=== PATIENT | female | born 1945 | race Caucasian/White ===

== ENCOUNTER 2019-01-17 10:10 | Inpatient (IN) | payer BC ==
--- NOTE | 2019-01-17 10:52 | PDOC ---
History of Present Illness - General Chief Complaint: Wound Stated Complaint: R/ LEG PROBLEM Time Seen by Provider: 01/17/19 10:36 History Source: Patient Exam Limitations: No Limitations - History of Present Illness Initial Comments: 01/17/19 11:27 73 yo F with a hx of HTN, DM (recent A1C 6.7%), HLD, and glaucoma presents to the emergency department with worsening right leg erythema. Per the patient, she was given amlodipine by her PMD 1 month ago and subsequently developed bilateral LE edema. The left leg resolved, but the RLE persisted. 3 weeks ago, she developed redness on her right lower leg at the ankle medial side. She was placed on clindamycin then and completed the course. The rash progressively ascended to her knee and was placed on keflex on 01/10/2019 (still taking it). She states her rash is worsening, spreading to her inner thigh, and a new rash Past History - Past Medical History Allergies/Adverse Reactions: Allergies Allergy/AdvReac Type Severity Reaction Status Date / Time No Known Allergies Allergy Verified 01/17/19 11:26 Home Medications: Ambulatory Orders Albuterol Sulfate [Proair Hfa -] 1 - 2 inh PO TID PRN 12/23/14 Atorvastatin Ca [Lipitor] 20 mg PO DAILY 12/23/14 Cetirizine HCl [Zyrtec -] 10 mg PO DAILY 12/23/14 Cholecalciferol (Vitamin D3) [Vitamin D] 2,000 unit PO DAILY 12/23/14 Cholecalciferol (Vitamin D3) [Vitamin D] 400 unit PO ASDIR 12/23/14 Cyanocobalamin Vit B-12 Inj. [Vitamin B12 Injection -] 1,000 mcg IM MONTHLY 09/01 Diltiazem Cd [Cardizem Cd -] 300 mg PO DAILY 12/23/14 Lisinopril [Prinivil -] 40 mg PO DAILY 12/23/14 Oxybutynin Chloride [Oxybutynin Chloride ER] 5 mg PO DAILY 12/23/14 Ranitidine HCl [Zantac] 150 mg PO HS 12/23/14 Travoprost (Benzalkonium) [Travatan 0.004% Eye Drop] 2.5 ml OP HS 12/23/14 Brinzolamide [Azopt] 1 g OP TID 01/12/15 Glipizide/Metformin HCl [Glipizide-Metformin 5-500 mg] 2 each PO BIDAC 01/12/15 Ciprofloxacin [Cipro -] 500 mg PO Q12H #6 tablet 01/13/15 Oxycodone HCl/Acetaminophen [Percocet 7.5-500 mg Tablet] 1 - 2 tab PO Q6H #20 tablet 01/13/15 Asthma: Yes COPD: Yes (bronchitis) Diabetes: Yes (NIDDM) Disorders: Yes (overactive bladder) HTN: Yes Hypercholesterolemia: Yes - Immunization History Immunization Up to Date: No - Psycho Social/Smoking Cessation Hx Smoking History: Never smoked Have you smoked in the past 12 months: No Information on smoking cessation initiated: No Hx Alcohol Use: No Drug/Substance Use Hx: No Substance Use Type: None Hx Substance Use Treatment: No *Physical Exam - Vital Signs Last Vital Signs Temp Pulse Resp BP Pulse Ox 98.2 F 76 16 159/63 96 01/17/19 10:15 01/17/19 10:15 01/17/19 10:15 01/17/19 10:15 01/17/19 10:15 Discharge - Discharge Information Condition: Stable - Follow up/Referral Referrals: Maura Harrison MD [Primary Care Provider] - - Patient Discharge Instructions - Post Discharge Activity
[2019-01-17] MEDS ORDERED: SODIUM CHLORIDE 500 ML IV STA (11:19)
[2019-01-17] MEDS ORDERED: ACETAMINOPHEN 1000 MG/100 ML VIAL (NON FORMULARY) IVPB ONE (11:19)
[2019-01-17] MEDS ORDERED: PIPERACILLIN/TAZOB 3.375 GM 3.375 GM in DEXTROSE 5%-WATER - 50 ML IVPB ONE (11:24)
[2019-01-17] MEDS ORDERED: VANCOMYCIN 1 GM in D5W (PRE-DOCKED) 1,000 MG/250 ML IVPB ONE (11:24)
[2019-01-17] MEDS ORDERED: ACETAMINOPHEN INJECTION 100 ML IVPB ONE (11:34)
[2019-01-17] MEDS ORDERED: PIPERACILLIN/TAZOB 3.375 GM 3.375 GM/50 ML BAG IVPB ONE (11:35)
[2019-01-17] MEDS ORDERED: VANCOMYCIN 1 GRAM (PRE-DOCKED) 1,000 MG/250 ML BAG IVPB ONE (11:35)
--- NOTE | 2019-01-17 11:35 | PDOC ---
Attending Attestation - Resident Resident Name: Francesco Kaplan - ED Attending Attestation I have performed the following: I have examined & evaluated the patient, The case was reviewed & discussed with the resident, I agree w/resident's findings & plan, Exceptions are as noted - HPI HPI: 01/17/19 11:35 73 F with h/o HTN, DM (recent A1C 6.7%), HLD, and glaucoma presenting to ED with RLE redness and swelling. Pt states that she first developed BLE edema a month ago when her BP meds were changed by her PMD. The LLE edema improved, but the RLE edema persisted and pt began to develop redness around the R ankle. Pt was tx'ed for cellulitis with clindamycin, which did not help. The redness worsened and spread to her knee, and pt was started on keflex 1 week ago. Pt notes no improvement on keflex. Denies F/C. Denies any open wounds. Denies any injury. Denies recent travel/immobilization. - Physicial Exam PE: 01/17/19 11:39 "GENERAL: Awake, alert, and fully oriented, in no acute distress. HEAD: No signs of trauma EYES: PERRLA, EOMI, sclera anicteric, conjunctiva clear ENT: Auricles normal inspection, hearing grossly normal, nares patent, oropharynx clear without exudates. Moist mucosa NECK: Nontender, no stepoffs, Normal ROM, supple, no lymphadenopathy, JVD, or masses LUNGS: Breath sounds equal, clear to auscultation bilaterally. No wheezes, and no crackles HEART: Regular rate and rhythm, normal S1 and S2, no murmurs, rubs or gallops ABDOMEN: Soft, nontender, normoactive bowel sounds. No guarding, no rebound. No masses EXTREMITIES: + RLE edema and erythema extending up kaur, diminished DP pulses bilaterally NEUROLOGICAL: Cranial nerves II through XII intact. 5/5 strength and sensation in all extremities, Normal speech, normal gait, normal cerebellar function SKIN: Warm, Dry, normal turgor, no rashes or lesions noted. - Medical Decision Making 01/17/19 11:40 73 F with RLE redness and swelling. - Labs, cultures - Venous and arterial dopplers - XR to r/o osteo - IV abx
[2019-01-17 12:18] LABS: BASO % 1.1 % (0-2.0); EOS % 5.2 % (0-4.5); HEMATOCRIT 33.7 % (32.4-45.2); HEMOGLOBIN 10.9 GM/dL (10.7-15.3); LYMPH % 14.4 % (8-40); MCH 26.6 pg (25.7-33.7); MCHC 32.5 g/dl (32.0-36.0); MEAN CELL VOLUME 82.1 fl (80-96); NEUT % 71.3 % (42.8-82.8); PLATELET COUNT 319 K/MM3 (134-434); RDW 14.6 % (11.6-15.6); WHITE BLOOD COUNT 8.3 K/mm3 (4.0-10.0)
[2019-01-17 12:46] LABS: INR 0.94 (0.83-1.09); PROTHROMBIN TIME (PATIENT) 11.1 SEC (9.7-13.0)
[2019-01-17 13:07] LABS: ALBUMIN 3.3 g/dl (3.4-5.0); BILIRUBIN,TOTAL 0.3 mg/dL (0.2-1); BLOOD UREA NITROGEN 25.8 mg/dL (7-18); CALCIUM 9.4 mg/dL (8.5-10.1); CREATININE 1.3 mg/dL (0.55-1.3); POTASSIUM 5.2 mmol/L (3.5-5.1); TOT PROT 7.4 g/dl (6.4-8.2)
--- NOTE | 2019-01-17 15:23 | HP ---
Admitting History and Physical - Admission History of Present Illness: 73 F with h/o HTN, DM (recent A1C 6.7%), HLD, and glaucoma presenting to ED with RLE redness and swelling. Pt states that she first developed BLE edema a month ago when her BP meds were changed by her PMD. The LLE edema improved, but the RLE edema persisted and pt began to develop redness around the R ankle. Pt was tx'ed for cellulitis with clindamycin, which did not help. The redness worsened and spread to her knee, and pt was started on keflex 1 week ago. Pt notes no improvement on keflex. Denies Fever and chills. Denies any open wounds. Denies any injury. Denies recent travel/immobilization. History Source: Patient - Past Medical History Cardiovascular: Yes: HTN, Hyperlipdemia Gastrointestinal: Yes: Gastritis Endocrine: Yes: Diabetes Mellitus - Smoking History Smoking history: Never smoked Have you smoked in the past 12 months: No - Alcohol/Substance Use Hx Alcohol Use: No Home Medications - Allergies Allergies/Adverse Reactions: Allergies Allergy/AdvReac Type Severity Reaction Status Date / Time No Known Allergies Allergy Verified 01/17/19 11:26 - Home Medications Home Medications: Ambulatory Orders Atorvastatin Ca [Lipitor] 20 mg PO DAILY 12/23/14 Cetirizine HCl [Zyrtec -] 10 mg PO DAILY 12/23/14 Cholecalciferol (Vitamin D3) [Vitamin D] 2,000 unit PO DAILY 12/23/14 Cyanocobalamin Vit B-12 Inj. [Vitamin B12 Injection -] 1,000 mcg IM MONTHLY 09/01 Diltiazem Cd [Cardizem Cd -] 300 mg PO DAILY 12/23/14 Oxybutynin Chloride [Oxybutynin Chloride ER] 5 mg PO DAILY 12/23/14 Travoprost (Benzalkonium) [Travatan 0.004% Eye Drop] 2.5 ml OP HS 12/23/14 Brinzolamide [Azopt] 1 g OP TID 01/12/15 Glipizide/Metformin HCl [Glipizide-Metformin 5-500 mg] 2 each PO BIDAC 01/12/15 Metformin HCl [Glucophage] 500 mg PO DAILY 01/17/19 Review of Systems - Review of Systems Musculoskeletal: reports: Other (leg pain redness) Physical Examination Vital Signs: Vital Signs Temperature 98.5 F 01/17/19 11:15 Pulse Rate 68 01/17/19 11:15 Respiratory Rate 20 01/17/19 11:15 Blood Pressure 165/68 01/17/19 11:15 O2 Sat by Pulse Oximetry (%) 94 L 01/17/19 11:15 Constitutional: Yes: Calm Cardiovascular: Yes: Regular Rate and Rhythm, S1, S2 Respiratory: Yes: CTA Bilaterally Gastrointestinal: Yes: Normal Bowel Sounds, Soft Musculoskeletal: Yes: Other (redness sweling warm to touch) Edema: Yes Labs: CBC, BMP 01/17/19 11:40 01/17/19 11:40 Problem List - Problems (1) Edema leg Assessment/Plan: arterial and venous scan pending elevate the leg iv abx ID eval vascular eval Code(s): R60.0 - LOCALIZED EDEMA (2) Diabetes Assessment/Plan: bgm [id number] sliding sclae hold metformin trend lactic acid Code(s): E11.9 - TYPE 2 DIABETES MELLITUS WITHOUT COMPLICATIONS Qualifiers: Diabetes mellitus type: type 2 (3) Cellulitis Assessment/Plan: iv abx trend lactic acid Code(s): L03.90 - CELLULITIS, UNSPECIFIED
[2019-01-17] MEDS ORDERED: ACETAMINOPHEN 325 MG TABLET (FP) PO PRN (15:26)
--- NOTE | 2019-01-17 15:51 | EKG ---
Test Reason : Blood Pressure : / mmHG Vent. Rate : 060 BPM Atrial Rate : 060 BPM P-R Int : 184 ms QRS Dur : 082 ms QT Int : 402 ms P-R-T Axes : 062 -07 039 degrees QTc Int : 402 ms POOR DATA QUALITY, INTERPRETATION MAY BE ADVERSELY AFFECTED NORMAL SINUS RHYTHM NORMAL ECG WHEN COMPARED WITH ECG OF 23-DEC-2014 09:30, VENT. RATE HAS DECREASED BY 42 BPM Confirmed by DARLIN HICKMAN, LUCIA ([id number]) on 01/17/2019 3:51:05 PM Referred By: Confirmed By:LUCIA SAEED MD
[2019-01-17 16:53] VITALS: BMI 40.9
--- NOTE | 2019-01-17 16:53 | PN ---
Progress Note (short form) - Note Progress Note: ID consult dictated imp/reccd 73 yo female with one month history of leg swelling RLE erythema for the last 2 weeks- clindamycin for one week - no improvement, switched to keflex qid for 10 days - has finished one week with no improvement able to ambulate pain with palpation of the leg duplex negative for dvt arterial dopplers abnormal cellulitis-no open wounds noted received vancomycin and zosyn in ED, will treat with vanco (by level due to elevated creatinine) and ceftriaxone abnl arterial dopplers-vascular surgery consult renal insufficiency DM obesity
[2019-01-17] MEDS ORDERED: CEFTRIAXONE 2 GM-D5W BAG 2 GM/50 ML BAG IVPB SCH (17:00)
[2019-01-17] MEDS ORDERED: PIPERACILLIN/TAZOBACTAM 3.375 GM VIAL IVPB ONE (17:04)
[2019-01-17] MEDS ORDERED: DEXTROSE 5%-WATER - 50 ML IVPB ONE (17:04)
[2019-01-17] MEDS: INSULIN SLIDING SCALE (NOVOLOG) 1 VIAL SQ SCH ×2 (17:17→21:07)
[2019-01-17] MEDS ORDERED: PIPERACILLIN/TAZOB 3.375 GM 3.375 GM in DEXTROSE 5%-WATER - 50 ML IVPB SCH (18:00)
[2019-01-17] MEDS ORDERED: DEXTROSE 5%-WATER 100 ML IVPB ONE (18:00)
[2019-01-17] MEDS: CEFTRIAXONE 2 GM in DEXTROSE 5%-WATER 100 ML IVPB SCH (18:11)
[2019-01-17] MEDS: ATORVASTATIN CA 20 MG TABLET (FP) PO SCH (21:01)
[2019-01-17] MEDS ORDERED: OXYBUTYNIN CHLORIDE 5 MG TABLET PO SCH (22:00)
[2019-01-17] MEDS ORDERED: diphenhydrAMINE HCL 25 MG CAPSULE (FP) PO ONE (22:52)
[2019-01-18] MEDS: INSULIN SLIDING SCALE (NOVOLOG) 1 VIAL SQ SCH ×4 (06:00→21:25)
[2019-01-18] MEDS: glipiZIDE 5 MG TABLET (FP) PO SCH (06:00)
[2019-01-18 07:50] LABS: BLOOD UREA NITROGEN 21.1 mg/dL (7-18); CALCIUM 9.2 mg/dL (8.5-10.1); CREATININE 1.3 mg/dL (0.55-1.3); POTASSIUM 4.4 mmol/L (3.5-5.1)
--- NOTE | 2019-01-18 08:55 | CONSULT ---
- Consultation REQUESTING PROVIDER: CONSULT REQUEST: We have been asked to surgically evaluate this patient for right leg swelling redness. PCP:Maura Harrison HISTORY OF PRESENT ILLNESS: The patient is a 73 yo female who lives independently and cares for herself. Over a month ago the patients hypertensive meds were changed because of an elevation in her potassium. At the same time, she noticed swelling that happened in both lower legs. Her left leg swelling improved but the right persisted and she developed redness. She has tried 2 oral antibiotic courses x 1 week each. When her leg remained red, her physicians wanted to to come to the hospital for IV abx. She hasn't had an fever or chills during the time her legs have been swollen and red. She has pain with palpation of the leg but otherwise no tenderness with ambulating/ sitting. No history of any lower ext ulcers, she does have diabetes, no numbness or tingling to her lower extremities. No claudicaiton symptoms. Years ago she had pain and swelling in her legs b/l and had laser venous therapy over 10 years ago. She denies any chronic swelling since that time until now. PMHx: HTN, DM, Kidney stone PSHx: stent and lithotripsy for Kidney stone , b/l surgery to venous laser therapy Home Medications Medication Instructions Recorded Atorvastatin Ca [Lipitor] 20 mg PO DAILY 12/23/14 Cetirizine HCl [Zyrtec -] 10 mg PO DAILY 12/23/14 Cholecalciferol (Vitamin D3) 2,000 unit PO DAILY 12/23/14 [Vitamin D] Cyanocobalamin Vit B-12 Inj. 1,000 mcg IM MONTHLY 12/23/14 [Vitamin B12 Injection -] Diltiazem Cd [Cardizem Cd -] 300 mg PO DAILY 12/23/14 Oxybutynin Chloride [Oxybutynin 5 mg PO DAILY 12/23/14 Chloride ER] Travoprost (Benzalkonium) 2.5 ml OP HS 12/23/14 [Travatan 0.004% Eye Drop] Brinzolamide [Azopt] 1 g OP TID 01/12/15 Glipizide/Metformin HCl 2 each PO BIDAC 01/12/15 [Glipizide-Metformin 5-500 mg] Metformin HCl [Glucophage] 500 mg PO DAILY 01/17/19 Allergies Allergy/AdvReac Type Severity Reaction Status Date / Time No Known Allergies Allergy Verified 01/17/19 11:26 REVIEW OF SYSTEMS: CONSTITUTIONAL: Absent: fever, chills CARDIOVASCULAR: Absent: chest pain, syncope RESPIRATORY: Absent: cough, shortness of breath GASTROINTESTINAL: Absent: abdominal pain, abdominal distension SKIN: Present: erythema to RLE x 2 to 3 weeks NEUROLOGIC: Absent: paresthesias PHYSICAL EXAM: GENERAL: Awake, alert, and fully oriented, in no acute distress. LUNGS: Clear to auscultation bilat anteriorly. No wheezes, and no crackles. HEART: Regular rate and rhythm. No murmurs ABDOMEN: Soft, nontender, not distended. LOWER EXTREMITIES: LLE 2+ DP-pulse palpable +2 PT with doppler, warm, well- perfused. No calf tenderness. Peripheral edema to left ankle with spider veins. RLE: +2 DP/PT with doppler, erythema to RLE, mostly posterior and medial to above the knee. Skin appears tight and is tender to touch. NO sores to b/l feet/ ankle or lower extremities. Skin intact. NEUROLOGICAL: Normal speech, gait steady. PSYCH: Cooperative. Good eye contact. Appropriate mood and affect. Vital Signs Temperature 97.2 F L 01/18/19 05:39 Pulse Rate 62 01/18/19 05:39 Respiratory Rate 18 01/18/19 05:39 Blood Pressure 139/68 01/18/19 05:39 O2 Sat by Pulse Oximetry (%) 93 L 01/17/19 15:30 Lab Results WBC 8.3 K/mm3 (4.0-10.0) 01/17/19 11:40 RBC 4.10 M/mm3 (3.60-5.2) 01/17/19 11:40 Hgb 10.9 GM/dL (10.7-15.3) 01/17/19 11:40 Hct 33.7 % (32.4-45.2) D 01/17/19 11:40 MCV 82.1 fl (80-96) 01/17/19 11:40 MCHC 32.5 g/dl (32.0-36.0) 01/17/19 11:40 RDW 14.6 % (11.6-15.6) 01/17/19 11:40 Plt Count 319 K/MM3 (134-434) D 01/17/19 11:40 Sodium 138 mmol/L (136-145) 01/18/19 06:40 Potassium 4.4 mmol/L (3.5-5.1) 01/18/19 06:40 Chloride 106 mmol/L (98-107) 01/18/19 06:40 Carbon Dioxide 23 mmol/L (21-32) 01/18/19 06:40 Anion Gap 8 MMOL/L (8-16) 01/18/19 06:40 BUN 21.1 mg/dL (7-18) H 01/18/19 06:40 Creatinine 1.3 mg/dL (0.55-1.3) 01/18/19 06:40 Random Glucose 100 mg/dL (74-106) 01/18/19 06:40 Calcium 9.2 mg/dL (8.5-10.1) 01/18/19 06:40 INR 0.94 (0.83-1.09) 01/17/19 11:40 US-12/28 and 01/17-no evidence of DVT Duplex arterial-monophasic flow throughout the leg with no hemodynamically significant stenosis Foot/LE xray: soft tissue swelling Problem List - Problems (1) Cellulitis Assessment/Plan: Pt with RLE cellulitis/swelling for several weeks with no improvement after oral antibtiocs. Now admitted to the hospital for IV abx and will also need strict leg elevation. Her arterial duplex does reveal some monophasic flow thought the right leg, clinically her feet are warm and with doppler DP pulse to the right/palpable on the left. She denies any history of claudication symptoms and or non healing ulcers. Code(s): L03.90 - CELLULITIS, UNSPECIFIED Qualifiers: Laterality: right (2) Edema leg Assessment/Plan: History of laser venous therpay >10 years ago and denies any current chronic swelling symptoms. Now with swelling cellulitis to RLE. Srict leg elevation at all times when in bed and oob to chair. The patient will need to follow up with Dr. Alonzo as an outpt in the clinic after swelling/cellulits improves. He will see her to determine any further vascular studies. D/w Dr. Alonzo Code(s): R60.0 - LOCALIZED EDEMA
[2019-01-18] MEDS ORDERED: DEXTROSE 5%-WATER 100 ML IVPB ONE (09:23)
[2019-01-18] MEDS ORDERED: PT OWN MED DRAWER 7, Y5N ONE ×3 (09:23→23:31)
[2019-01-18] MEDS: CEFTRIAXONE 2 GM in DEXTROSE 5%-WATER 100 ML IVPB SCH (09:25)
[2019-01-18] MEDS: OXYBUTYNIN CHLORIDE 5 MG TABLET PO SCH (09:26)
--- NOTE | 2019-01-18 11:27 | PN ---
Progress Note, Physician Chief Complaint: RLE Cellulitis History of Present Illness: Previous notes and events reviewed awake and alert NAD RLE warm to touch and tender to palpation afebrile no leukocytosis BC pending - Current Medication List Current Medications: Active Medications Acetaminophen (Tylenol -) 650 mg PO Q4H PRN PRN Reason: PAIN Atorvastatin Calcium (Lipitor -) 20 mg PO HS [facility] Last Admin: 01/17/19 21:01 Dose: 20 mg Diltiazem HCl (Cardizem Cd -) 300 mg PO DAILY [facility] Glipizide (Glucotrol -) 5 mg PO DAILY@0700 [facility] Last Admin: 01/18/19 06:00 Dose: 5 mg Ceftriaxone Sodium 2 gm/ (Dextrose) 100 mls @ 200 mls/hr IVPB DAILY [facility]; Protocol Last Admin: 01/18/19 09:25 Dose: 200 mls/hr Insulin Aspart (Novolog Vial Sliding Scale -) 1 vial SQ ACHS [facility]; Protocol Last Admin: 01/18/19 06:00 Dose: Not Given Oxybutynin Chloride (Ditropan -) 5 mg PO DAILY [facility] Last Admin: 01/18/19 09:26 Dose: 5 mg - Objective Vital Signs: Vital Signs Temperature 97.2 F L 01/18/19 05:39 Pulse Rate 62 01/18/19 05:39 Respiratory Rate 18 01/18/19 05:39 Blood Pressure 139/68 01/18/19 05:39 O2 Sat by Pulse Oximetry (%) 93 L 01/17/19 15:30 Constitutional: Yes: No Distress, Calm Eyes: Yes: Conjunctiva Clear HENT: Yes: Atraumatic Cardiovascular: Yes: Regular Rate and Rhythm Respiratory: Yes: Regular, CTA Bilaterally Gastrointestinal: Yes: Normal Bowel Sounds, Soft, Abdomen, Obese Musculoskeletal: Yes: WNL Extremities: Yes: Erythema (RLE) Edema: Yes (RLE) Integumentary: Yes: Erythema (RLE from ankle to below knee), Other (RLE~edema, tender on palpation, warm to touch) Neurological: Yes: Alert, Oriented Psychiatric: Yes: Alert, Oriented Labs: CBC, BMP 01/17/19 11:40 01/18/19 06:40 INR, PTT INR 0.94 (0.83-1.09) 01/17/19 11:40 Problem List - Problems (1) Cellulitis Assessment/Plan: -ID on board -Ceftriaxone -no leukocytosis -afebrile -BC pending -LA 2.7 Code(s): L03.90 - CELLULITIS, UNSPECIFIED Qualifiers: Laterality: right (2) CKD (chronic kidney disease) Assessment/Plan: -BUN/Cr 21.1/1.3 -monitor renal function daily -Renal US shows normal kidneys and bladder with no evidence of hydronephrosis or acute pathology Code(s): N18.9 - CHRONIC KIDNEY DISEASE, UNSPECIFIED (3) Diabetes Assessment/Plan: -BGM ACHS -ISS -HgA1c 6.6% -diabetic diet -Glipizide Code(s): E11.9 - TYPE 2 DIABETES MELLITUS WITHOUT COMPLICATIONS Qualifiers: Diabetes mellitus type: type 2 (4) HLD (hyperlipidemia) Assessment/Plan: -Atorvastatin Code(s): E78.5 - HYPERLIPIDEMIA, UNSPECIFIED (5) HTN (hypertension) Assessment/Plan: -Diltiazem -low Na/diabetic diet Code(s): I10 - ESSENTIAL (PRIMARY) HYPERTENSION (6) Edema leg Assessment/Plan: -Vascular on board~close follow up as outpatient -Leg Elevation -Arterial Duplex shows abnormal flow right lower extremity suspicious for inflow pathology -R Foot/Ankle Xray shows calcaneal spurring, no acute fracture -R Tib/Fib Xray shows some arthritic changes with no sign of fracture or subluxation of central blastic or lytic findings -Venous duplex neg for DVT Code(s): R60.0 - LOCALIZED EDEMA Assessment/Plan see problem list dvt ppx
--- NOTE | 2019-01-18 15:33 | PN ---
Progress Note (short form) - Note Progress Note: clinically improved Vital Signs Period Temp Pulse Resp BP Sys/Rankin Pulse Ox Last 24 Hr 97.2 F-98.2 F 55-63 18-18 138-163/51-82 cor-rrr llungs clear abd soft,nt ext less erythema RLE CBC, BMP 01/17/19 11:40 01/18/19 06:40 Microbiology 01/17/19 11:40 Blood - Peripheral Venous Blood Culture - Preliminary NO GROWTH OBTAINED AFTER 24 HOURS, INCUBATION TO CONTINUE FOR 4 DAYS. 01/17/19 11:15 Blood - Peripheral Venous Blood Culture - Preliminary NO GROWTH OBTAINED AFTER 24 HOURS, INCUBATION TO CONTINUE FOR 4 DAYS. a/p cellulitis improving on vanco/rocephin- will continue vanco trough noted, vancomycin dose adjusted
[2019-01-18] MEDS ORDERED: INSULIN (NOVOLOG) ASPART 100 UNITS/ML 10ML VIAL ONE (16:44)
[2019-01-18] MEDS: VANCOMYCIN HCL 1,250 MG in DEXTROSE 5%-WATER - 250 ML IVPB SCH (16:50)
[2019-01-18] MEDS ORDERED: BACITRACIN 15 GM TUBE TOPICAL OINTMENT TP SCH (17:48)
--- NOTE | 2019-01-18 17:51 | HOSP ---
Subjective - Review of Symptoms General: Yes: Other Physical Examination Vital Signs: Vital Signs Temperature 98.3 F 01/18/19 16:36 Pulse Rate 64 01/18/19 16:36 Respiratory Rate 20 01/18/19 16:36 Blood Pressure 128/61 01/18/19 16:36 O2 Sat by Pulse Oximetry (%) 93 L 01/17/19 15:30 Constitutional: Yes: Well Nourished, No Distress, Calm Eyes: Yes: WNL HENT: Yes: WNL, Atraumatic Labs: CBC, BMP 01/17/19 11:40 01/18/19 06:40 Hospitalist Encounter Assessment: called by primary rn to see patient's right arm after patient bumped her arm on the bathroom door while attempting to enter the bathroom. Per RN, patient has not fallen. patient sustained a small round skin tear next to right elbow will treat with bacitracin bid patient denies falls, and mentation at baseline normal range of motion of right arm
[2019-01-18] MEDS: BACITRACIN 15 GM TUBE TOPICAL OINTMENT TP SCH ×2 (18:03→21:26)
[2019-01-18] MEDS: ATORVASTATIN CA 20 MG TABLET (FP) PO SCH (21:25)
[2019-01-19] MEDS: glipiZIDE 5 MG TABLET (FP) PO SCH (06:01)
[2019-01-19] MEDS: INSULIN SLIDING SCALE (NOVOLOG) 1 VIAL SQ SCH ×4 (06:01→22:08)
[2019-01-19 07:53] LABS: HEMATOCRIT 33.8 % (32.4-45.2); HEMOGLOBIN 11.7 GM/dL (10.7-15.3); MCH 28.4 pg (25.7-33.7); MCHC 34.8 g/dl (32.0-36.0); MEAN CELL VOLUME 81.8 fl (80-96); MEAN PLT VOLUME 8.8 fl (7.5-11.1); PLATELET COUNT 322 K/MM3 (134-434); RBC 4.13 M/mm3 (3.60-5.2); RDW 14.4 % (11.6-15.6)
[2019-01-19 08:35] LABS: ALBUMIN 3.7 g/dl (3.4-5.0); BILIRUBIN,TOTAL 0.4 mg/dL (0.2-1); BLOOD UREA NITROGEN 19.2 mg/dL (7-18); CALCIUM 10.3 mg/dL (8.5-10.1); CREATININE 1.3 mg/dL (0.55-1.3); POTASSIUM 4.5 mmol/L (3.5-5.1); TOT PROT 7.7 g/dl (6.4-8.2)
[2019-01-19] MEDS ORDERED: DEXTROSE 5%-WATER 100 ML IVPB ONE (09:49)
[2019-01-19] MEDS ORDERED: PT OWN MED DRAWER 7, Y5N ONE ×2 (09:49→15:40)
[2019-01-19] MEDS: CEFTRIAXONE 2 GM in DEXTROSE 5%-WATER 100 ML IVPB SCH (09:53)
[2019-01-19] MEDS: OXYBUTYNIN CHLORIDE 5 MG TABLET PO SCH (09:54)
[2019-01-19] MEDS: BACITRACIN 15 GM TUBE TOPICAL OINTMENT TP SCH ×2 (09:54→22:13)
[2019-01-19] MEDS ORDERED: INSULIN (NOVOLOG) ASPART 100 UNITS/ML 10ML VIAL ONE (11:49)
--- NOTE | 2019-01-19 13:12 | PN ---
Progress Note (short form) - Note Progress Note: no complaints Vital Signs Period Temp Pulse Resp BP Sys/Rankin Pulse Ox Last 24 Hr 97.9 F-98.3 F 60-67 18-20 128-161/61-82 cor-rrr lungs clear leg unchanged, erythema less red CBC, BMP 01/19/19 07:10 01/19/19 07:10 Microbiology 01/17/19 11:40 Blood - Peripheral Venous Blood Culture - Preliminary NO GROWTH OBTAINED AFTER 48 HOURS, INCUBATION TO CONTINUE FOR 3 DAYS. 01/17/19 11:15 Blood - Peripheral Venous Blood Culture - Preliminary NO GROWTH OBTAINED AFTER 48 HOURS, INCUBATION TO CONTINUE FOR 3 DAYS. a/p cellulitis improving on vanco/rocephin- will continue failed outpt management
--- NOTE | 2019-01-19 14:50 | PN ---
Progress Note, Physician Chief Complaint: RLE Cellulitis History of Present Illness: Previous notes and events reviewed awake and alert NAD RLE warm to touch and tender to palpation, less erythema noted afebrile no leukocytosis BC neg - Current Medication List Current Medications: Active Medications Acetaminophen (Tylenol -) 650 mg PO Q4H PRN PRN Reason: PAIN Atorvastatin Calcium (Lipitor -) 20 mg PO HS [facility] Last Admin: 01/18/19 21:25 Dose: 20 mg Bacitracin (Bacitracin -) 1 applic TP BID [facility] Last Admin: 01/19/19 09:54 Dose: 1 applic Diltiazem HCl (Cardizem Cd -) 300 mg PO DAILY [facility] Last Admin: 01/19/19 09:54 Dose: 300 mg Glipizide (Glucotrol -) 5 mg PO DAILY@0700 [facility] Last Admin: 01/19/19 06:01 Dose: 5 mg Ceftriaxone Sodium 2 gm/ (Dextrose) 100 mls @ 200 mls/hr IVPB DAILY [facility]; Protocol Last Admin: 01/19/19 09:53 Dose: 200 mls/hr Vancomycin HCl 1,250 mg/ (Dextrose) 250 mls @ 250 mls/2 hr IVPB Q24H [facility]; Protocol Last Admin: 01/18/19 16:50 Dose: 250 mls/2 hr Insulin Aspart (Novolog Vial Sliding Scale -) 1 vial SQ ACHS [facility]; Protocol Last Admin: 01/19/19 11:52 Dose: 6 units Oxybutynin Chloride (Ditropan -) 5 mg PO DAILY [facility] Last Admin: 01/19/19 09:54 Dose: 5 mg - Objective Vital Signs: Vital Signs Temperature 98.1 F 01/19/19 10:03 Pulse Rate 67 01/19/19 10:03 Respiratory Rate 18 01/19/19 10:03 Blood Pressure 161/70 01/19/19 10:03 O2 Sat by Pulse Oximetry (%) 93 L 01/17/19 15:30 Constitutional: Yes: No Distress, Calm, Obese Eyes: Yes: Conjunctiva Clear HENT: Yes: Atraumatic Cardiovascular: Yes: Regular Rate and Rhythm Respiratory: Yes: Regular, CTA Bilaterally Gastrointestinal: Yes: Normal Bowel Sounds, Soft, Abdomen, Obese Integumentary: Yes: Erythema (RLE), Other (RLE-edema and warm to touch) Wound/Incision: Yes: Dressing Dry and Intact (R elbow) Neurological: Yes: Alert, Oriented Psychiatric: Yes: Alert, Oriented Labs: CBC, BMP 01/19/19 07:10 01/19/19 07:10 INR, PTT INR 0.94 (0.83-1.09) 01/17/19 11:40 Microbiology 01/17/19 11:40 Blood - Peripheral Venous Blood Culture - Preliminary NO GROWTH OBTAINED AFTER 48 HOURS, INCUBATION TO CONTINUE FOR 3 DAYS. 01/17/19 11:15 Blood - Peripheral Venous Blood Culture - Preliminary NO GROWTH OBTAINED AFTER 48 HOURS, INCUBATION TO CONTINUE FOR 3 DAYS. Problem List - Problems (1) Cellulitis Assessment/Plan: -ID on board -Ceftriaxone -no leukocytosis -afebrile -BC neg -LA 2.7 Code(s): L03.90 - CELLULITIS, UNSPECIFIED Qualifiers: Laterality: right (2) CKD (chronic kidney disease) Assessment/Plan: -BUN/Cr 19.2/1.3 -monitor renal function daily -Renal US shows normal kidneys and bladder with no evidence of hydronephrosis or acute pathology Code(s): N18.9 - CHRONIC KIDNEY DISEASE, UNSPECIFIED (3) Diabetes Assessment/Plan: -BGM ACHS -ISS -HgA1c 6.6% -diabetic diet -Glipizide Code(s): E11.9 - TYPE 2 DIABETES MELLITUS WITHOUT COMPLICATIONS Qualifiers: Diabetes mellitus type: type 2 (4) HLD (hyperlipidemia) Assessment/Plan: -Atorvastatin Code(s): E78.5 - HYPERLIPIDEMIA, UNSPECIFIED (5) HTN (hypertension) Assessment/Plan: -Diltiazem -low Na/diabetic diet Code(s): I10 - ESSENTIAL (PRIMARY) HYPERTENSION (6) Edema leg Assessment/Plan: -Vascular on board~close follow up as outpatient -Leg Elevation -Arterial Duplex shows abnormal flow right lower extremity suspicious for inflow pathology -R Foot/Ankle Xray shows calcaneal spurring, no acute fracture -R Tib/Fib Xray shows some arthritic changes with no sign of fracture or subluxation of central blastic or lytic findings -Venous duplex neg for DVT Code(s): R60.0 - LOCALIZED EDEMA Assessment/Plan see problem list dvt ppx
[2019-01-19] MEDS: VANCOMYCIN HCL 1,250 MG in DEXTROSE 5%-WATER - 250 ML IVPB SCH (15:43)
[2019-01-19] MEDS: ATORVASTATIN CA 20 MG TABLET (FP) PO SCH (22:12)
[2019-01-20] MEDS ORDERED: PT OWN MED DRAWER 7, Y5N ONE ×3 (05:23→15:30)
[2019-01-20] MEDS: glipiZIDE 5 MG TABLET (FP) PO SCH (06:13)
[2019-01-20] MEDS: INSULIN SLIDING SCALE (NOVOLOG) 1 VIAL SQ SCH ×4 (06:47→22:13)
[2019-01-20 06:50] LABS: HEMATOCRIT 33.5 % (32.4-45.2); HEMOGLOBIN 11.6 GM/dL (10.7-15.3); MCH 28.6 pg (25.7-33.7); MCHC 34.6 g/dl (32.0-36.0); MEAN CELL VOLUME 82.7 fl (80-96); MEAN PLT VOLUME 8.4 fl (7.5-11.1); PLATELET COUNT 345 K/MM3 (134-434); RBC 4.05 M/mm3 (3.60-5.2); RDW 14.3 % (11.6-15.6); WHITE BLOOD COUNT 8.3 K/mm3 (4.0-10.0)
[2019-01-20 08:23] LABS: ALBUMIN 3.5 g/dl (3.4-5.0); BILIRUBIN,TOTAL 0.5 mg/dL (0.2-1); BLOOD UREA NITROGEN 19.1 mg/dL (7-18); CALCIUM 9.9 mg/dL (8.5-10.1); CREATININE 1.4 mg/dL (0.55-1.3); POTASSIUM 4.5 mmol/L (3.5-5.1); TOT PROT 7.4 g/dl (6.4-8.2)
[2019-01-20] MEDS ORDERED: DEXTROSE 5%-WATER 100 ML IVPB ONE (08:32)
--- NOTE | 2019-01-20 08:43 | PN ---
Progress Note, Physician Chief Complaint: AWAKE ALERT DENIES FEVER OR CHILLS FEELING BETTER - Current Medication List Current Medications: Active Medications Acetaminophen (Tylenol -) 650 mg PO Q4H PRN PRN Reason: PAIN Atorvastatin Calcium (Lipitor -) 20 mg PO HS [facility] Last Admin: 01/19/19 22:12 Dose: 20 mg Bacitracin (Bacitracin -) 1 applic TP BID [facility] Last Admin: 01/19/19 22:13 Dose: 1 applic Diltiazem HCl (Cardizem Cd -) 300 mg PO DAILY [facility] Last Admin: 01/19/19 09:54 Dose: 300 mg Glipizide (Glucotrol -) 5 mg PO DAILY@0700 [facility] Last Admin: 01/20/19 06:13 Dose: 5 mg Ceftriaxone Sodium 2 gm/ (Dextrose) 100 mls @ 200 mls/hr IVPB DAILY [facility]; Protocol Last Admin: 01/19/19 09:53 Dose: 200 mls/hr Vancomycin HCl 1,250 mg/ (Dextrose) 250 mls @ 250 mls/2 hr IVPB Q24H [facility]; Protocol Last Admin: 01/19/19 15:43 Dose: 250 mls/2 hr Insulin Aspart (Novolog Vial Sliding Scale -) 1 vial SQ ACHS [facility]; Protocol Last Admin: 01/20/19 06:47 Dose: Not Given Oxybutynin Chloride (Ditropan -) 5 mg PO DAILY [facility] Last Admin: 01/19/19 09:54 Dose: 5 mg - Objective Vital Signs: Vital Signs Temperature 97.9 F 01/19/19 16:10 Pulse Rate 63 01/19/19 16:10 Respiratory Rate 20 01/19/19 16:10 Blood Pressure 157/70 01/19/19 16:10 O2 Sat by Pulse Oximetry (%) 93 L 01/17/19 15:30 Constitutional: Yes: No Distress Cardiovascular: Yes: Regular Rate and Rhythm Respiratory: Yes: WNL Gastrointestinal: Yes: Soft, Abdomen, Obese Genitourinary: Yes: WNL Musculoskeletal: Yes: Other Extremities: Yes: Erythema Edema: Yes Integumentary: Yes: Erythema Wound/Incision: Yes: Other Neurological: Yes: WNL ...Motor Strength: LLE (ERYTHEMA AND MILD EDEMA) Psychiatric: Yes: WNL Labs: CBC, BMP 01/20/19 06:35 01/20/19 06:35 INR, PTT INR 0.94 (0.83-1.09) 01/17/19 11:40 Problem List - Problems (1) Cellulitis Code(s): L03.90 - CELLULITIS, UNSPECIFIED Qualifiers: Laterality: right (2) Edema leg Code(s): R60.0 - LOCALIZED EDEMA (3) CKD (chronic kidney disease) Code(s): N18.9 - CHRONIC KIDNEY DISEASE, UNSPECIFIED (4) Diabetes Code(s): E11.9 - TYPE 2 DIABETES MELLITUS WITHOUT COMPLICATIONS Qualifiers: Diabetes mellitus type: type 2 (5) HLD (hyperlipidemia) Code(s): E78.5 - HYPERLIPIDEMIA, UNSPECIFIED (6) HTN (hypertension) Code(s): I10 - ESSENTIAL (PRIMARY) HYPERTENSION Assessment/Plan IV ABX CONTINUED PER ID TO CHANGE TO PO ABX TOMORROW F/U OUTPATIENT WITH DR LOPEZ AND WOUND CARE BGM CHECKS DVT PROPHYLAXIS OOB TO CHAIR
[2019-01-20] MEDS: CEFTRIAXONE 2 GM in DEXTROSE 5%-WATER 100 ML IVPB SCH (09:03)
[2019-01-20] MEDS: OXYBUTYNIN CHLORIDE 5 MG TABLET PO SCH (09:03)
[2019-01-20] MEDS: BACITRACIN 15 GM TUBE TOPICAL OINTMENT TP SCH ×2 (09:04→22:16)
[2019-01-20] MEDS: HEPARIN NA (PORCINE) 5,000 UNITS/ML 1ML VIAL SQ SCH ×2 (10:23→22:13)
--- NOTE | 2019-01-20 15:17 | PN ---
Progress Note (short form) - Note Progress Note: no complaints Vital Signs Period Temp Pulse Resp BP Sys/Rankin Pulse Ox Last 24 Hr 98.2 F 81 20 152/91 leg is improving- lesserythema, less warmth CBC, BMP 01/20/19 06:35 01/20/19 06:35 Microbiology 01/17/19 11:40 Blood - Peripheral Venous Blood Culture - Preliminary NO GROWTH OBTAINED AFTER 72 HOURS, INCUBATION TO CONTINUE FOR 2 DAYS. 01/17/19 11:15 Blood - Peripheral Venous Blood Culture - Preliminary NO GROWTH OBTAINED AFTER 72 HOURS, INCUBATION TO CONTINUE FOR 2 DAYS. Current Medications Acetaminophen (Tylenol -) 650 mg PO Q4H PRN PRN Reason: PAIN Atorvastatin Calcium (Lipitor -) 20 mg PO HS [facility] Last Admin: 01/19/19 22:12 Dose: 20 mg Bacitracin (Bacitracin -) 1 applic TP BID [facility] Last Admin: 01/20/19 09:04 Dose: 1 applic Diltiazem HCl (Cardizem Cd -) 300 mg PO DAILY [facility] Last Admin: 01/20/19 09:03 Dose: 300 mg Glipizide (Glucotrol -) 5 mg PO DAILY@0700 [facility] Last Admin: 01/20/19 06:13 Dose: 5 mg Heparin Sodium (Porcine) (Heparin -) 5,000 unit SQ BID [facility] Last Admin: 01/20/19 10:23 Dose: 5,000 unit Ceftriaxone Sodium 2 gm/ (Dextrose) 100 mls @ 200 mls/hr IVPB DAILY [facility]; Protocol Last Admin: 01/20/19 09:03 Dose: 200 mls/hr Vancomycin HCl 1,250 mg/ (Dextrose) 250 mls @ 250 mls/2 hr IVPB Q24H [facility]; Protocol Last Admin: 01/19/19 15:43 Dose: 250 mls/2 hr Insulin Aspart (Novolog Vial Sliding Scale -) 1 vial SQ ACHS [facility]; Protocol Last Admin: 01/20/19 12:13 Dose: 2 units Oxybutynin Chloride (Ditropan -) 5 mg PO DAILY [facility] Last Admin: 01/20/19 09:03 Dose: 5 mg a/p cellulitis improving on vanco/rocephin- day #3, failed clindamycin and keflex, would consider zyvoxx 400 mg po bid for 7 days as outpt if her insurance will cover it, if not doxycycline 100 mg po bid d/w hospitalist
[2019-01-20] MEDS: VANCOMYCIN HCL 1,250 MG in DEXTROSE 5%-WATER - 250 ML IVPB SCH (15:34)
[2019-01-20] MEDS ORDERED: INSULIN (NOVOLOG) ASPART 100 UNITS/ML 10ML VIAL ONE (21:31)
[2019-01-20] MEDS: ATORVASTATIN CA 20 MG TABLET (FP) PO SCH (22:15)
[2019-01-21] MEDS ORDERED: PT OWN MED DRAWER 7, Y5N ONE (05:44)
[2019-01-21] MEDS: glipiZIDE 5 MG TABLET (FP) PO SCH (06:41)
[2019-01-21] MEDS: INSULIN SLIDING SCALE (NOVOLOG) 1 VIAL SQ SCH ×2 (06:42→12:07)
[2019-01-21] MEDS ORDERED: INSULIN (NOVOLOG) ASPART 100 UNITS/ML 10ML VIAL ONE (07:36)
[2019-01-21] MEDS ORDERED: INSULIN (LEVEMIR) 100 UNITS/ML UNITS SQ ONE (07:36)
[2019-01-21 07:39] VITALS: PULSE 73
[2019-01-21 08:42] LABS: BLOOD UREA NITROGEN 24.4 mg/dL (7-18); CALCIUM 10.1 mg/dL (8.5-10.1); CREATININE 1.4 mg/dL (0.55-1.3); POTASSIUM 4.7 mmol/L (3.5-5.1)
[2019-01-21] MEDS: BACITRACIN 15 GM TUBE TOPICAL OINTMENT TP SCH (09:47)
[2019-01-21] MEDS: OXYBUTYNIN CHLORIDE 5 MG TABLET PO SCH (09:48)
[2019-01-21] MEDS: HEPARIN NA (PORCINE) 5,000 UNITS/ML 1ML VIAL SQ SCH (09:48)
--- NOTE | 2019-01-21 09:58 | DS ---
Physical Examination Vital Signs: Vital Signs Temperature 98.3 F 01/21/19 07:38 Pulse Rate 73 01/21/19 07:38 Respiratory Rate 20 01/21/19 07:38 Blood Pressure 127/76 01/21/19 07:38 O2 Sat by Pulse Oximetry (%) 100 01/20/19 21:00 Findings/Remarks: Laboratory Results - last 24 hr 01/20/19 01/20/19 01/20/19 11:28 16:00 22:11 Sodium Potassium Chloride Carbon Dioxide Anion Gap BUN Creatinine Est GFR (CKD-EPI)AfAm Est GFR (CKD-EPI)NonAf POC Glucometer 228 178 232 Random Glucose Calcium 01/21/19 01/21/19 06:38 06:45 Sodium 135 L Potassium 4.7 Chloride 105 Carbon Dioxide 24 Anion Gap 6 L BUN 24.4 H Creatinine 1.4 H Est GFR (CKD-EPI)AfAm 42.49 Est GFR (CKD-EPI)NonAf 36.66 POC Glucometer 188 Random Glucose 198 H Calcium 10.1 Active Medications Generic Name Dose Route Start Last Admin Trade Name Freq PRN Reason Stop Dose Admin Acetaminophen 650 mg 01/17/19 15:26 Tylenol - PO Q4H PRN PAIN Atorvastatin Calcium 20 mg 01/17/19 22:00 01/20/19 22:15 Lipitor - PO 20 mg HS [facility] Administration Bacitracin 1 applic 01/18/19 18:00 01/21/19 09:47 Bacitracin - TP 1 applic BID [facility] Administration Diltiazem HCl 300 mg 01/18/19 10:00 01/21/19 09:48 Cardizem Cd - PO 300 mg DAILY [facility] Administration Glipizide 5 mg 01/18/19 07:00 01/21/19 06:41 Glucotrol - PO 5 mg DAILY@0700 [facility] Administration Heparin Sodium (Porcine) 5,000 unit 01/20/19 10:00 01/21/19 09:48 Heparin - SQ 5,000 unit BID [facility] Administration Insulin Aspart 1 vial 01/17/19 16:30 01/21/19 06:42 Novolog Vial Sliding Scale - SQ Not Given ACHS [facility] Protocol Linezolid 400 mg 01/21/19 10:00 Zyvox (Restricted To Id) - PO BID [facility] Oxybutynin Chloride 5 mg 01/18/19 10:00 01/21/19 09:48 Ditropan - PO 5 mg DAILY [facility] Administration Microbiology 01/17/19 11:40 Blood Culture - Preliminary Blood - Peripheral Venous NO GROWTH OBTAINED AFTER 72 HOURS, INCUBATION TO CONTINUE FOR 2 DAYS. 01/17/19 11:15 Blood Culture - Preliminary Blood - Peripheral Venous NO GROWTH OBTAINED AFTER 72 HOURS, INCUBATION TO CONTINUE FOR 2 DAYS. Constitutional: Yes: No Distress, Calm Eyes: Yes: Conjunctiva Clear HENT: Yes: Atraumatic Cardiovascular: Yes: Regular Rate and Rhythm Respiratory: Yes: Regular, CTA Bilaterally Gastrointestinal: Yes: Normal Bowel Sounds, Soft, Abdomen, Obese Musculoskeletal: Yes: WNL Extremities: Yes: Erythema (LLE) Edema: Yes (LLE) Integumentary: Yes: Erythema (LLE), Other (LLE warm to touch, edema) Neurological: Yes: Alert, Oriented Psychiatric: Yes: Alert, Oriented Labs: CBC, BMP 01/20/19 06:35 01/21/19 06:45 Discharge Summary Problems reviewed: Yes Reason For Visit: CELLULITIS Current Active Problems Cellulitis (Acute) Edema leg (Acute) Hospital Course: 73 F with h/o HTN, DM (recent A1C 6.7%), HLD, and glaucoma presenting to ED with RLE redness and swelling. Pt states that she first developed BLE edema a month ago when her BP meds were changed by her PMD. The LLE edema improved, but the RLE edema persisted and pt began to develop redness around the R ankle. Pt was tx'ed for cellulitis with clindamycin, which did not help. The redness worsened and spread to her knee, and pt was started on keflex 1 week ago. Pt notes no improvement on keflex. Denies Fever and chills. Denies any open wounds. Denies any injury. Denies recent travel/immobilization. Patient evaluated by ID and was started on IV antibiotic therapy. BC drawn and shows no growth. Responded well to IV antibiotics, erythema and edema to LLE lessened. She was switched to oral antibiotics as per ID recommendations. Condition: Stable - Instructions Diet, Activity, Other Instructions: Follow up with Dr. Alonzo in the wound clinic in 1 to 2 weeks from discharge date. [phone]. Follow up with PMD in 1 week take antibiotic therapy as prescribed continue current medication regimen return to ER if develop severe pain, respiratory distress, chest pain, fever Referrals: Maura Harrison MD [Primary Care Provider] - Ezequiel Alonzo DO [Staff Physician] - Disposition: HOME - Home Medications Comprehensive Discharge Medication List: Ambulatory Orders Atorvastatin Ca [Lipitor] 20 mg PO DAILY 12/23/14 Cetirizine HCl [Zyrtec -] 10 mg PO DAILY 12/23/14 Cholecalciferol (Vitamin D3) [Vitamin D] 2,000 unit PO DAILY 12/23/14 Cyanocobalamin Vit B-12 Inj. [Vitamin B12 Injection -] 1,000 mcg IM MONTHLY 09/01 Diltiazem Cd [Cardizem Cd -] 300 mg PO DAILY 12/23/14 Oxybutynin Chloride [Oxybutynin Chloride ER] 5 mg PO DAILY 12/23/14 Travoprost (Benzalkonium) [Travatan 0.004% Eye Drop] 2.5 ml OP HS 12/23/14 Brinzolamide [Azopt] 1 g OP TID 01/12/15 Glipizide/Metformin HCl [Glipizide-Metformin 5-500 mg] 2 each PO BIDAC 01/12/15 Metformin HCl [Glucophage] 500 mg PO DAILY 01/17/19 Atorvastatin Ca [Lipitor] 20 mg PO HS tablet 01/21/19 Bacitracin - [Bacitracin Topical Ointment -] 1 applic TP BID #1 tube 01/21/19 Diltiazem Cd [Cardizem Cd -] 300 mg PO DAILY cap.cd.24h 01/21/19 Linezolid [Zyvox (Restricted To Id) -] 400 mg PO BID #14 tablet 01/21/19 Oxybutynin Chloride [Ditropan -] 5 mg PO DAILY tablet 01/21/19
[2019-01-21] MEDS ORDERED: LINEZOLID 600 MG TABLET (RESTRICTED TO ID) PO SCH (10:00)
[2019-01-21 11:41] VITALS: BP 141/77; TEMP 98.8
[2019-01-21] MEDS ORDERED: THROMBIN (BOVINE) 5,000 UNIT VIAL TP ONE (14:05)
== END 2019-01-21 14:46 | disposition home or self-care (01) | DRG 603 ==
LOC: JER 10:10 → JERBED 14:02 → J8W 16:36
PROVIDERS: ADMIT Family Medicine; ATTEND Family Medicine
DX: L03.115 Cellulitis of right lower limb (principal); Z68.41 Body mass index [BMI] 40.0-44.9, adult; E11.9 Type 2 diabetes mellitus without complications; R60.0 Localized edema; E66.9 Obesity, unspecified; N18.9 Chronic kidney disease, unspecified; I10 Essential (primary) hypertension; E78.5 Hyperlipidemia, unspecified
CPT/HCPCS: 36415; 73590-TC-RT-FY; 73610-TC-RT-FY; 73630-TC-RT-FY; 76775-TC; 76856-TC; 80048; 80053; 82962; 83036; 83605; 85025; 85027; 85610; 87040; 93005; 93010; 93926-TC; 93971-TC; 99283-25; G0480; J0131; J1644

== ENCOUNTER 2020-06-21 10:09 | Inpatient (IN) | payer BC, OTHER ==
[2020-06-21] MEDS ORDERED: SODIUM CHLORIDE 500 ML IV STA ×2 (11:44→12:30)
[2020-06-21] MEDS ORDERED: KETOROLAC TROMETHAMINE 30 MG/1 ML VIAL IVPUSH ONE (11:44)
[2020-06-21] MEDS ORDERED: KETOROLAC TROMETHAMINE 30 MG/1 ML VIAL ONE (11:46)
[2020-06-21 11:57] LABS: BASO % 0.5 % (0-2.0); EOS % 0.3 % (0-4.5); HEMOGLOBIN 11.6 GM/dL (10.7-15.3); LYMPH % 3.4 % (8-40); MCH 27.6 pg (25.7-33.7); MEAN CELL VOLUME 83.5 fl (80-96); MEAN PLT VOLUME 8.6 fl (7.5-11.1); MONO % 3.1 % (3.8-10.2); NEUT % 92.7 % (42.8-82.8); PLATELET COUNT 320 K/MM3 (134-434); RBC 4.19 M/mm3 (3.60-5.2); RDW 13.9 % (11.6-15.6); WHITE BLOOD COUNT 14.9 K/mm3 (4.0-10.0)
[2020-06-21 12:00] LABS: EPI CELLS 8 /uL (0-25.1); HYALINE CASTS 2 /uL (0-3.1); URINE APPEARANCE CLOUDY; URINE BACTERIA >9,000 /uL (0-1359); URINE BILIRUBIN NEGATIVE (NEGATIVE); URINE COLOR YELLOW; URINE GLUCOSE (UA) NEGATIVE (NEGATIVE); URINE KETONE NEGATIVE (NEGATIVE); URINE LEUK ESTERASE 3+ (NEGATIVE); URINE NITRITE NEGATIVE (NEGATIVE); URINE PROTEIN 1+ (NEGATIVE); URINE RBC 28 /uL (0-23.9); URINE UROBILINOGEN 0.2 mg/dL (0.2-1.0); URINE WBC 1951 /uL (0-25.8)
[2020-06-21 12:19] LABS: BLOOD UREA NITROGEN 36.3 mg/dL (7-18); CALCIUM 10.3 mg/dL (8.5-10.1)
[2020-06-21 12:20] LABS: ALBUMIN 3.7 g/dl (3.4-5.0)
[2020-06-21 12:23] LABS: CREATININE 2.4 mg/dL (0.55-1.3)
[2020-06-21 12:24] LABS: BILIRUBIN,TOTAL 0.3 mg/dL (0.2-1); TOT PROT 7.8 g/dl (6.4-8.2)
[2020-06-21] MEDS ORDERED: MEROPENEM 1 GM in DEXTROSE 5%-WATER 100 ML IVPB ONE ×2 (12:31→12:39)
[2020-06-21] MEDS ORDERED: MEROPENEM 1 GM VIAL (RESTRICTED TO ID) IVPB ONE ×2 (12:34→18:22)
[2020-06-21] MEDS ORDERED: LINEZOLID 600 MG PREMIX BAG 600 MG in PREMIX 300 IV ONE (12:41)
[2020-06-21] MEDS ORDERED: LINEZOLID 600 MG PREMIX BAG 600 MG/300 ML BAG IVPB ONE (12:53)
[2020-06-21 13:06] LABS: ANISOCYTOSIS 1+; MACROCYTOSIS 1+; PLATELET ESTIMATE NORMAL
[2020-06-21 13:32] LABS: INR 1.04 (0.83-1.09); PROTHROMBIN TIME (PATIENT) 12.8 SEC (9.7-13.0)
[2020-06-21] MEDS ORDERED: ACETAMINOPHEN 500 MG TABLET (FP) PO ONE (15:54)
[2020-06-21] MEDS ORDERED: ACETAMINOPHEN INJECTION 100 ML IVPB ONE (15:55)
[2020-06-21] MEDS ORDERED: SODIUM CHLORIDE 0.9%/KCL 20 MEQ/1,000 ML INFUS.BAG IV SCH (17:30)
[2020-06-21] MEDS ORDERED: ACETAMINOPHEN 1000 MG/100 ML VIAL (NON FORMULARY) IVPB PRN (17:32)
[2020-06-21] MEDS ORDERED: MORPHINE SULFATE 2 MG/ML VIAL IVPUSH PRN (17:44)
[2020-06-21] MEDS ORDERED: CEFTRIAXONE 1 GM in DEXTROSE 5%-WATER - 50 ML IVPB SCH (17:45)
[2020-06-21] MEDS ORDERED: VANCOMYCIN 1 GRAM (PRE-DOCKED) 1,000 MG/250 ML BAG IVPB ONE (18:22)
[2020-06-21] MEDS: MEROPENEM 1 GM in DEXTROSE 5%-WATER 100 ML IVPB SCH (18:38)
[2020-06-21] MEDS: VANCOMYCIN 1 GM in D5W (PRE-DOCKED) 1,000 MG/250 ML IVPB SCH (18:38)
[2020-06-22] MEDS: INSULIN SLIDING SCALE (NOVOLOG) 1 VIAL SQ SCH ×4 (01:35→21:08)
[2020-06-22] MEDS ORDERED: MEROPENEM 1 GM VIAL (RESTRICTED TO ID) IVPB ONE (01:37)
[2020-06-22] MEDS ORDERED: DEXTROSE 5%-WATER 100 ML IVPB ONE ×2 (01:37→10:33)
[2020-06-22] MEDS: MEROPENEM 1 GM in DEXTROSE 5%-WATER 100 ML IVPB SCH ×2 (02:09→10:59)
[2020-06-22 04:16] VITALS: BMI 35.6
[2020-06-22] MEDS: VANCOMYCIN 1 GM in D5W (PRE-DOCKED) 1,000 MG/250 ML IVPB SCH (05:37)
[2020-06-22] MEDS ORDERED: DEXTROSE 5%-0.45% SALINE 1,000 ML IV SCH ×2 (06:00→14:45)
[2020-06-22] MEDS ORDERED: TAMSULOSIN HCL 0.4 MG CAP PO SCH (08:30)
[2020-06-22] MEDS ORDERED: CEFTRIAXONE 2 GM in DEXTROSE 5%-WATER 100 ML IVPB SCH (10:15)
[2020-06-22 10:23] LABS: BASO % 0.4 % (0-2.0); EOS % 0.7 % (0-4.5); LYMPH % 5.6 % (8-40); MCH 27.4 pg (25.7-33.7); MCHC 32.5 g/dl (32.0-36.0); MEAN CELL VOLUME 84.5 fl (80-96); MEAN PLT VOLUME 8.7 fl (7.5-11.1); MONO % 6.2 % (3.8-10.2); NEUT % 87.1 % (42.8-82.8); PLATELET COUNT 205 K/MM3 (134-434); RBC 3.66 M/mm3 (3.60-5.2); RDW 13.9 % (11.6-15.6); WHITE BLOOD COUNT 19.5 K/mm3 (4.0-10.0)
[2020-06-22 10:37] LABS: BLOOD UREA NITROGEN 46.1 mg/dL (7-18); CALCIUM 8.9 mg/dL (8.5-10.1)
[2020-06-22 10:38] LABS: MAGNESIUM 1.5 mg/dL (1.8-2.4)
[2020-06-22 10:41] LABS: PHOSPHOROUS 2.5 mg/dL (2.5-4.9)
[2020-06-22] MEDS ORDERED: INSULIN (NOVOLOG) ASPART 100 UNITS/ML 10ML VIAL ONE (11:13)
[2020-06-22] MEDS ORDERED: PROPOFOL 20 ML ONE ×2 (12:17)
[2020-06-22] MEDS ORDERED: MIDAZOLAM HCL 2 MG/2 ML SINGLE DOSE VIAL ONE ×2 (12:17→13:35)
[2020-06-22] MEDS ORDERED: ROCURONIUM BROMIDE 50 MG/5 ML SYRINGE ONE (12:30)
[2020-06-22] MEDS ORDERED: GENTAMICIN SO4 80 MG/2 ML VIAL IVPB ONE (12:34)
[2020-06-22] MEDS ORDERED: NEOSTIGMINE METHYLSULFATE 0.5 MG/1 ML - 10 ML MDV ONE ×2 (13:08→13:25)
[2020-06-22] MEDS ORDERED: ACETAMINOPHEN 1000 MG/100 ML VIAL (NON FORMULARY) IVPB PRN (14:45)
[2020-06-22] MEDS ORDERED: MORPHINE SULFATE 2 MG/ML VIAL IVPUSH PRN (14:45)
[2020-06-22] MEDS ORDERED: INSULIN SLIDING SCALE (NOVOLOG) 1 VIAL SQ SCH (16:30)
[2020-06-22] MEDS ORDERED: VANCOMYCIN 1 GM in D5W (PRE-DOCKED) 1,000 MG/250 ML IVPB SCH (18:00)
[2020-06-22] MEDS: DEXTROSE 5%-0.45% SALINE 1,000 ML IV SCH (18:17)
[2020-06-22] MEDS: MORPHINE SULFATE 2 MG/ML VIAL IVPUSH PRN (23:23)
[2020-06-23] MEDS: MORPHINE SULFATE 2 MG/ML VIAL IVPUSH PRN ×2 (06:13→12:30)
[2020-06-23] MEDS: INSULIN SLIDING SCALE (NOVOLOG) 1 VIAL SQ SCH ×4 (06:13→22:00)
[2020-06-23 07:38] LABS: HEMATOCRIT 31.7 % (32.4-45.2); HEMOGLOBIN 10.7 GM/dL (10.7-15.3); MCH 27.6 pg (25.7-33.7); MCHC 33.7 g/dl (32.0-36.0); MEAN CELL VOLUME 81.8 fl (80-96); MEAN PLT VOLUME 9.1 fl (7.5-11.1); PLATELET COUNT 240 K/MM3 (134-434); RBC 3.87 M/mm3 (3.60-5.2); WHITE BLOOD COUNT 20.5 K/mm3 (4.0-10.0)
[2020-06-23 07:44] LABS: CALCIUM 8.5 mg/dL (8.5-10.1)
[2020-06-23 07:45] LABS: BLOOD UREA NITROGEN 43.4 mg/dL (7-18)
[2020-06-23 07:48] LABS: CREATININE 2.5 mg/dL (0.55-1.3)
[2020-06-23 07:49] LABS: BILIRUBIN,TOTAL 0.2 mg/dL (0.2-1); TOT PROT 6.2 g/dl (6.4-8.2)
[2020-06-23 07:51] LABS: ALBUMIN 2.7 g/dl (3.4-5.0)
[2020-06-23] MEDS ORDERED: CEFTRIAXONE 2 GM in DEXTROSE 5%-WATER 100 ML IVPB SCH (10:00)
[2020-06-23] MEDS ORDERED: PT OWN MED DRAWER 7, Y5N ONE (10:06)
[2020-06-23] MEDS ORDERED: DEXTROSE 5%-WATER 100 ML IVPB ONE (10:08)
[2020-06-23] MEDS ORDERED: HEPARIN NA (PORCINE) 5,000 UNITS/ML 1ML VIAL SQ SCH (11:00)
[2020-06-23] MEDS: DEXTROSE 5%-0.45% SALINE 1,000 ML IV SCH (12:06)
[2020-06-23] MEDS: CEFTRIAXONE 2 GM in DEXTROSE 5%-WATER 100 ML IVPB SCH (12:07)
[2020-06-23] MEDS ORDERED: DEXTROSE 5%-NORMAL SALINE 1,000 ML IV SCH (13:15)
[2020-06-23] MEDS: SODIUM BICARBONATE 650 MG TABLET PO SCH (15:40)
[2020-06-23] MEDS ORDERED: ACETAMINOPHEN 325 MG TABLET (FP) PO PRN (16:44)
[2020-06-23] MEDS ORDERED: POLYETHYLENE GLYCOL 3350 119 GM BTL PO ONE (17:41)
[2020-06-23] MEDS: traMADol HCL 50 MG TABLET PO PRN (18:08)
[2020-06-23] MEDS: POLYETHYLENE GLYCOL 3350 119 GM BTL PO SCH (18:10)
[2020-06-23] MEDS: oxyCODONE HCL 5 MG TABLET PO PRN (22:00)
[2020-06-23] MEDS: DOCUSATE SODIUM 100 MG CAPSULE (FP) PO SCH (22:00)
[2020-06-23] MEDS: APIXABAN 5 MG TABLET PO SCH (22:00)
[2020-06-24] MEDS: INSULIN SLIDING SCALE (NOVOLOG) 1 VIAL SQ SCH ×4 (06:18→22:40)
[2020-06-24] MEDS: DOCUSATE SODIUM 100 MG CAPSULE (FP) PO SCH ×3 (06:19→22:41)
[2020-06-24 07:45] LABS: HEMATOCRIT 32.3 % (32.4-45.2); HEMOGLOBIN 10.8 GM/dL (10.7-15.3); MCH 27.4 pg (25.7-33.7); MCHC 33.4 g/dl (32.0-36.0); MEAN CELL VOLUME 82.2 fl (80-96); MEAN PLT VOLUME 9.1 fl (7.5-11.1); PLATELET COUNT 271 K/MM3 (134-434); RBC 3.94 M/mm3 (3.60-5.2); WHITE BLOOD COUNT 13.8 K/mm3 (4.0-10.0)
[2020-06-24 08:03] LABS: BLOOD UREA NITROGEN 41.8 mg/dL (7-18)
[2020-06-24 08:07] LABS: CREATININE 2.2 mg/dL (0.55-1.3)
[2020-06-24] MEDS ORDERED: DEXTROSE 5%-WATER 100 ML IVPB ONE (08:48)
[2020-06-24] MEDS: CEFTRIAXONE 2 GM in DEXTROSE 5%-WATER 100 ML IVPB SCH (09:15)
[2020-06-24] MEDS: APIXABAN 5 MG TABLET PO SCH ×2 (09:16→22:41)
[2020-06-24] MEDS: traMADol HCL 50 MG TABLET PO PRN (09:16)
[2020-06-24] MEDS: SODIUM BICARBONATE 650 MG TABLET PO SCH ×2 (09:16→22:40)
[2020-06-24] MEDS: POLYETHYLENE GLYCOL 3350 119 GM BTL PO SCH (09:21)
[2020-06-24] MEDS ORDERED: LACTATED RINGERS SOLUTION 1,000 ML/1,000 ML INFUS.BAG IV SCH (10:45)
[2020-06-24] MEDS: oxyCODONE HCL 5 MG TABLET PO PRN (20:05)
[2020-06-25] MEDS: DOCUSATE SODIUM 100 MG CAPSULE (FP) PO SCH ×2 (06:00→13:29)
[2020-06-25] MEDS: INSULIN SLIDING SCALE (NOVOLOG) 1 VIAL SQ SCH ×2 (06:02→11:42)
[2020-06-25 07:55] LABS: BASO % 0.8 % (0-2.0); EOS % 1.7 % (0-4.5); HEMATOCRIT 32.2 % (32.4-45.2); HEMOGLOBIN 10.8 GM/dL (10.7-15.3); LYMPH % 7.3 % (8-40); MCH 27.5 pg (25.7-33.7); MCHC 33.4 g/dl (32.0-36.0); MEAN CELL VOLUME 82.4 fl (80-96); MEAN PLT VOLUME 9.1 fl (7.5-11.1); MONO % 11.7 % (3.8-10.2); NEUT % 78.5 % (42.8-82.8); PLATELET COUNT 283 K/MM3 (134-434); RBC 3.91 M/mm3 (3.60-5.2); RDW 13.8 % (11.6-15.6); WHITE BLOOD COUNT 14.2 K/mm3 (4.0-10.0)
[2020-06-25 08:27] LABS: BLOOD UREA NITROGEN 42.6 mg/dL (7-18); CALCIUM 9.1 mg/dL (8.5-10.1)
[2020-06-25 08:28] LABS: ALBUMIN 2.7 g/dl (3.4-5.0)
[2020-06-25 08:32] LABS: TOT PROT 6.2 g/dl (6.4-8.2)
[2020-06-25] MEDS ORDERED: DEXTROSE 5%-WATER 100 ML IVPB ONE (08:50)
[2020-06-25 09:27] VITALS: BP 116/75; PULSE 109; TEMP 97.7
[2020-06-25] MEDS: APIXABAN 5 MG TABLET PO SCH (09:31)
[2020-06-25] MEDS: CEFTRIAXONE 2 GM in DEXTROSE 5%-WATER 100 ML IVPB SCH (09:31)
[2020-06-25] MEDS: SODIUM BICARBONATE 650 MG TABLET PO SCH (09:31)
[2020-06-25] MEDS: POLYETHYLENE GLYCOL 3350 119 GM BTL PO SCH (09:37)
[2020-06-26] MEDS ORDERED: SODIUM BICARBONATE 650 MG TABLET PO SCH (10:00)
== END 2020-06-25 14:08 | disposition home or self-care (01) | DRG 660 ==
LOC: JER 10:09 → JERBED 12:30 → J8W 22:01 → J2C 06-22 15:24 → J4W 06-22 18:18
PROVIDERS: ADMIT Family Medicine; ATTEND Family Medicine
PROC: 0T778DZ Dilation of Left Ureter with Intraluminal Device, Via Natural or Artificial Opening Endoscopic (ICD-10-PCS; principal; 2020-06-23)
PROC: BT1FZZZ Fluoroscopy of Left Kidney, Ureter and Bladder (ICD-10-PCS; 2020-06-23)
DX: N13.6 Pyonephrosis (principal); I97.191 Other postprocedural cardiac functional disturbances following other surgery; E87.1 Hypo-osmolality and hyponatremia; E87.2 Acidosis; N17.9 Acute kidney failure, unspecified; E66.01 Morbid (severe) obesity due to excess calories; I10 Essential (primary) hypertension; E78.5 Hyperlipidemia, unspecified; E11.9 Type 2 diabetes mellitus without complications; Z68.37 Body mass index [BMI] 37.0-37.9, adult; I48.91 Unspecified atrial fibrillation; K21.9 Gastro-esophageal reflux disease without esophagitis; Y83.9 Surgical procedure, unspecified as the cause of abnormal reaction of the patient, or of later complication, without mention of misadventure at the time of the procedure; N39.0 Urinary tract infection, site not specified; B96.20 Unspecified Escherichia coli [E. coli] as the cause of diseases classified elsewhere; K59.00 Constipation, unspecified
CPT/HCPCS: 36415; 71045-TC-FY; 71046-TC-FY; 74176-TC; 76000-TC-FY; 80048; 80053; 81003; 82550; 82962; 83690; 83735; 84100; 84439; 84443; 84484; 85025; 85027; 85610; 86850; 86900; 86901; 87040; 87086; 87186; 93005; 93010; 93306-TC; 94760; 97116-GP; 97161-GP; 99285-25; C9803; J1644; U0003; U0005

== ENCOUNTER 2020-07-20 04:15 | Day surgery (SDC) | payer BC ==
[2020-07-17 10:40] VITALS: BMI 36.2
[2020-07-20] MEDS ORDERED: PROPOFOL 20 ML ONE (13:54)
[2020-07-20 14:49] VITALS: BP 117/76; PULSE 60; TEMP 97.3
[2020-07-20] MEDS ORDERED: ONDANSETRON 4 MG/2 ML VIAL IVPUSH PRN (15:42)
[2020-07-20] MEDS ORDERED: oxyCODONE HCL 5 MG TABLET PO PRN (15:42)
[2020-07-20] MEDS ORDERED: ACETAMINOPHEN 325 MG TABLET (FP) PO PRN (15:42)
[2020-07-20] MEDS ORDERED: LACTATED RINGERS SOLUTION 1,000 ML IV SCH (15:45)
== END 2020-07-20 15:50 | disposition home or self-care (01) ==
LOC: JASU-SURG 04:15
PROVIDERS: ATTEND Urology
PROC: 0TF4XZZ Fragmentation in Left Kidney Pelvis, External Approach (ICD-10-PCS; principal; 2020-07-20 12:00)
DX: N20.0 Calculus of kidney (principal); I10 Essential (primary) hypertension; E11.9 Type 2 diabetes mellitus without complications
CPT/HCPCS: 82962

== ENCOUNTER 2021-07-16 10:35 | Day surgery (SDC) | payer BC ==
[2021-07-16] MEDS ORDERED: IRON SUCROSE INJECTION 200 MG/100 ML BAG IVPB ONE (12:00)
[2021-07-16 13:38] VITALS: BP 145/52; PULSE 58; TEMP 97.8
== END 2021-07-16 13:45 | disposition home or self-care (01) ==
LOC: FINFUSION 10:35 → FM/S 10:39 → FINFUSION 10:39 → FM/S 10:58 → FINFUSION 13:45
PROVIDERS: ATTEND Family Medicine
PROC: 3E033GC Introduction of Other Therapeutic Substance into Peripheral Vein, Percutaneous Approach (ICD-10-PCS; principal; 2021-07-16)
DX: D50.9 Iron deficiency anemia, unspecified (principal)
CPT/HCPCS: 96365; J1756

== ENCOUNTER 2021-07-26 10:51 | Day surgery (SDC) | payer BC ==
[~2021-07-26 10:51] MED LIST: IRON SUCROSE INJECTION 200 MG/100 ML BAG IVPB ONE
[2021-07-26] MEDS ORDERED: IRON SUCROSE INJECTION 200 MG/100 ML BAG IVPB ONE (11:30)
[2021-07-26 11:32] VITALS: TEMP 97.5
[2021-07-26 12:18] VITALS: BP 150/53; PULSE 53
== END 2021-07-26 12:25 | disposition home or self-care (01) ==
LOC: FINFUSION 10:51 → FM/S 10:59 → FINFUSION 12:25
PROVIDERS: ATTEND Family Medicine
PROC: 3E033GC Introduction of Other Therapeutic Substance into Peripheral Vein, Percutaneous Approach (ICD-10-PCS; principal; 2021-07-26)
DX: D50.9 Iron deficiency anemia, unspecified (principal)
CPT/HCPCS: 96365; J1756

== ENCOUNTER 2022-09-02 04:32 | Day surgery (SDC) | payer BC ==
[2022-09-01 09:28] VITALS: BMI 41.1
[~2022-09-02 04:32] MED LIST changes: +BUPIVACAINE HCL/PF 0.5% (5MG/ML) 10 ML VIAL IJ ONE; +IOHEXOL 180 MG/1 ML ML IJ ONE; -IRON SUCROSE INJECTION 200 MG/100 ML BAG IVPB ONE; +LIDOCAINE HCL 1% PRESERVATIVE FREE - 30ML VIAL IJ ONE; +TRIAMCINOLONE ACET 40MG/1ML VIAL IM ONE
[2022-09-02] MEDS ORDERED: BUPIVACAINE HCL/PF 0.5% (5MG/ML) 10 ML VIAL ONE (07:44)
[2022-09-02] MEDS ORDERED: TRIAMCINOLONE ACET 40MG/1ML VIAL ONE (07:44)
[2022-09-02] MEDS ORDERED: LIDOCAINE HCL/PF 1% SDV 5ML VIAL ONE (07:45)
[2022-09-02] MEDS ORDERED: ACETAMINOPHEN 500 MG TABLET (FP) PO PRN (09:05)
[2022-09-02 10:59] VITALS: RESP 20
[2022-09-02] MEDS ORDERED: IOHEXOL 180 MG/1 ML ML IJ ONE (11:53)
[2022-09-02] MEDS ORDERED: TRIAMCINOLONE ACET 40MG/1ML VIAL IM ONE (11:53)
[2022-09-02] MEDS ORDERED: LIDOCAINE HCL 1% PRESERVATIVE FREE - 30ML VIAL IJ ONE (11:53)
[2022-09-02] MEDS ORDERED: BUPIVACAINE HCL/PF 0.5% (5MG/ML) 10 ML VIAL IJ ONE (11:53)
[2022-09-02 12:19] VITALS: BP 144/64; PULSE 52; TEMP 97.6
== END 2022-09-02 12:47 | disposition home or self-care (01) ==
LOC: JASU-SURG 04:32
PROVIDERS: ATTEND Pain Medicine Pain Medicine
PROC: 3E0U3BZ Introduction of Anesthetic Agent into Joints, Percutaneous Approach (ICD-10-PCS; 2022-09-02)
PROC: 3E0U33Z Introduction of Anti-inflammatory into Joints, Percutaneous Approach (ICD-10-PCS; principal; 2022-09-02 12:30)
DX: M53.3 Sacrococcygeal disorders, not elsewhere classified (principal)
CPT/HCPCS: 76000-TC-FY